=== PATIENT | male | born 1995 | race Caucasian/White ===

== ENCOUNTER 2017-01-28 04:27 | Emergency (ER) | payer OTHER ==
[~2017-01-28] VITALS: Ht 167.6 cm; Wt 56.7 kg
[2017-01-28 04:45] VITALS: BP 155/92; PULSE 76; RESP 16; TEMP 98.6; O2SAT 98
[2017-01-28 05:25] VITALS: BP 147/86; PULSE 7; RESP 17; TEMP 98.6; O2SAT 98
== END 2017-01-28 05:25 | disposition home or self-care (01) ==
LOC: SED 04:27
DX: R05 Cough (principal); F11.10 Opioid abuse, uncomplicated
CPT/HCPCS: 99283